=== PATIENT | female | born 1975 | race Hispanic/Latino ===

== ENCOUNTER 2017-04-30 07:04 | Outpatient (CLI) | payer OTHER | END 2017-04-30 07:05 | disposition home or self-care (01) | LOC: BICULT 07:04 | PROVIDERS: ATTEND Family Medicine | DX: R10.2 Pelvic and perineal pain (principal); R93.8 Abnormal findings on diagnostic imaging of other specified body structures | CPT/HCPCS: 76856 ==

== ENCOUNTER 2018-04-15 10:37 | Outpatient (CLI) | payer OTHER ==
--- NOTE | 2018-04-15 11:46 | RAD ---
FRONTAL VIEW ABDOMEN KUB: Indication: Bowel habit changes, abdominal pain. FINDINGS: There is a large volume of retained fecal material in the colon. Bowel gas pattern is nonobstructed. The upper abdomen is partially excluded limiting assessment in this regard. Visualized osseous struct ures reveal no acute findings. IMPRESSION: 1. Retained fecal material throughout the colon indicating constipation. 2. No radiographic evidence of bowel obstruction. POS: [facility]
== END 2018-04-15 10:38 | disposition home or self-care (01) ==
LOC: BICRAD 10:37
PROVIDERS: ATTEND Internal Medicine
DX: R19.4 Change in bowel habit (principal); K59.00 Constipation, unspecified
CPT/HCPCS: 74018

== ENCOUNTER 2018-10-02 00:17 | Emergency (ER) | payer SELFPAY ==
[2018-10-02] MEDS ORDERED: Adacel (T-DAP) 0.5 ML SYRINGE ONE (01:31)
[2018-10-02 02:03] LABS: HBSAB Concentration 0.13 mIU/mL; HIV (1/2) Antibody/Antigen Non-Reactive (NonReactive); HIV 1/2 INDEX 0.27 S/CO (<1.00); Hep B Surf AB Non-Reactive (NonReactive); Hep C IgG Ab Non-Reactive (NonReactive); Hep C Index 0.77 S/CO (0-0.79)
== END 2018-10-02 01:44 | disposition home or self-care (01) ==
LOC: ERS 00:17
DX: S61.032A Puncture wound without foreign body of left thumb without damage to nail, initial encounter (principal); Z77.21 Contact with and (suspected) exposure to potentially hazardous body fluids; Z23 Encounter for immunization; W46.0XXA Contact with hypodermic needle, initial encounter; Y92.239 Unspecified place in hospital as the place of occurrence of the external cause; Y99.0 Civilian activity done for income or pay
CPT/HCPCS: 36415; 86706; 86803; 87389; 90471; 90715

== ENCOUNTER 2018-10-03 06:06 | Emergency (ER) | payer SELFPAY ==
[2018-10-03] MEDS ORDERED: Ketorolac Tromethamine 30 MG/ML VIAL ONE (07:43)
[2018-10-03 08:24] LABS: Bilirubin Negative (Negative); Blood, Urine Large (Negative); Clarity CLOUDY (Clear); Glucose, Urine (Dipstick) Negative (Negative); Leukocyte Large (Negative); Nitrite Negative (Negative); Protein, Urine (Dipstick) 30 mg/dL (Neg-Trace); Specific Gravity, Urine 1.022 (1.002-1.036); Urobilinogen 0.2 mg/dL (0.2-1.0); pH, Urine 6.5 (5.0-9.0)
[2018-10-03 08:26] LABS: Bacteria/HPF Rare-Few HPF (None Seen); Pregnancy Test - Urine (BHCG) Negative (Negative); Pregu Control Background? CLEAR/WHITE (CLR/WHITE); Pregu Control Bar Appear? YES (CONTROL BAR); Specific Gravity 1.022 (1.002-1.036)
[2018-10-03 08:27] LABS: Pathc Cast-AUWi Flag 4.84 (0-2.49); Yeast-AUWi Flag 204.1 (0-25.0)
[2018-10-03 08:38] LABS: Hyaline Casts/LPF 0-3 HYALINE CAST LPF (0-3 Hyaline); Manual Microscopic Reviewed? No Path Casts Seen; Yeast-All Forms None Seen HPF (None Seen)
[2018-10-03] MEDS ORDERED: cefTRIAXone\\ROCEPHIN 250 MG VIAL ONE (08:52)
[2018-10-03] MEDS ORDERED: Lidocaine 1% PF 5 ML VIAL ONE (08:52)
[2018-10-04 23:31] LABS: Chlamydia by PCR Not Detected (NotDetected); GC by PCR Not Detected (NotDetected)
== END 2018-10-03 09:18 | disposition home or self-care (01) ==
LOC: ERS 06:06
DX: A60.04 Herpesviral vulvovaginitis (principal)
CPT/HCPCS: 81003; 81015; 81025; 87480; 87491; 87510; 87591; 87660; 96372; J0696; J1885; J2001